=== PATIENT | female | born 1995 | race Caucasian/White ===

== ENCOUNTER 2020-07-07 11:41 | Emergency (ER) | payer BC, MEDICAID, SELFPAY ==
[2020-07-07 11:48] VITALS: BP 137/84; PULSE 64; RESP 14; TEMP 36.7; O2SAT 100; BMI 23.9
--- NOTE | 2020-07-07 12:00 | US_ITS ---
WS: [id number] Obstetrical ultrasound, less than 14 weeks. HISTORY: Vaginal bleeding. History of . Transvaginal imaging is submitted. Uterus is anteverted and normal size. Mild thickening of the endom etrium. There is increased vascularity within the endometrium but no gestational sac. Endometrium kate sures up to 8 mm. Cervix is closed. RIGHT ovary measures 3.6 x 1.0 x 2.8 cm. Normal size ovary. No increased vascularity. LEFT ovary nathalie ures 4.0 x 2.1 x 2.3 cm. Normal size ovary with several small follicles. No free fluid. US/US OB transvaginal [id number] IMPRESSION: 1. No intrauterine gestational sac is identified. Mild thickening of endometriu m may be from recently passed gestation or hormonal stimulation. Without an int rauterine gestation cannot exclude ectopic if there is a positive beta hCG. 2. No free fluid.
--- NOTE | 2020-07-07 12:02 | W.ED.PREGNAN ---
HPI - General: Chief complaint: Vaginal Bleeding Stated complaint: /bleeding Time Seen by Provider: 07/07/20 11:57 History of Present Illness: HPI Narrative: The patient is a 24-year-old G1 with last menstrual period April 16 who comes to the ER complaining of vaginal bleeding for the past 2 days. She says Tuesday she started having spotting and Tuesday she had gushing blood today it is less but she still bleeding. She was to set up care with OB this week but the bleeding started so she came to the ED. MD Complaint: vaginal bleeding Severity: mild Quality: Cramping Relieving factors: none Exacerbating factors: none Date of Last Menstrual Period: 04/16/20 Associated symptoms: Reports no associated symptoms; Deny abdominal pain or headache(s) Review of Systems General: Reports: 10 or more systems reviewed and unremarkable except in HPI and below Const: Denies: fatigue Eyes: Denies: change in vision, blurry vision or eye redness ENMT: Denies: throat pain, swelling of lips/tongue, ear or mastoid pain or nasal congestion Card: Denies: chest pain, palpitations, irregular heart rhythm, edema, dyspnea on exertion or orthopnea Resp: Denies: dyspnea, productive cough or non-productive cough GI: Denies: abdominal pain, diarrhea or GI cramping : Reports: vaginal bleeding; Denies: flank pain, difficulty voiding, urinary frequency or urinary urgency Musc: Denies: neck pain, back pain, extremity pain, joint pain, joint redness, limited range of motion or muscle weakness Skin/Breast: Denies: rash, pruritus, erythema, skin pain or skin tenderness Neuro: Denies: headache(s), numbness in extremities, weakness in extremities, sensory changes, difficulty walking, dizziness, confusion or Slurred speech present Psych: Denies: anxiety or depression Endo: Denies: polyuria All/Imm: Denies: urticaria, throat swelling or tongue swelling [facility] ED Female Reproductive History: Date of last menstrual period: 04/16/20 Physical Exam Const: COMMON NORMALS: no acute distress, average body habitus, patient oriented x3, no limitations, healthy appearing, alert and well nourished GENERAL APPEARANCE: cooperative, comfortable, well kempt and well developed ORIENTATION/CONSCIOUSNESS: Yes awake, Yes oriented to person, Yes oriented to place and Yes oriented to time HENMT: COMMON NORMALS: normocephalic, external ears normal and Normal external nose present HEAD & SCALP: normal to inspection and normocephalic NOSE: Normal external nose present EXTERNAL EAR: Yes external ears normal MOUTH: Normal oral and palatal mucosa present THROAT: posterior oropharynx normal Eye: COMMON NORMALS: Equal, round and reactive pupils present and EOMs intact bilaterally GENERAL EYE: appearance normal, both eyes and all related structures PUPIL: Yes Equal, round and reactive pupils present Neck/C-Spine: COMMON NORMALS: full ROM, no lymphadenopathy, no meningeal signs and no JVD GENERAL: Yes normal visual inspection Lymph: LYMPHATIC: no lymphadenopathy noted Chest: COMMONS NORMALS: normal inspection of the chest and normal palpation of entire chest wall Resp: COMMON NORMALS: normal respiratory effort, No retractions, No use of accessory muscles, clear to auscultation bilaterally and percussion normal EFFORT & INSPECTION: Yes able to speak in complete sentences AUSCULTATION: clear to auscultation bilaterally PERCUSSION: percussion normal Cardio: COMMON NORMALS: no JVD, regular rate, regular rhythm, S1 normal heart sound present, S2 normal heart sound present and Peripheral pulses 2+ throughout RATE: regular rate RHYTHM: regular rhythm HEART SOUNDS: S1 normal heart sound present and S2 normal heart sound present PERIPHERAL PULSES: Peripheral pulses 2+ throughout GI: COMMON NORMALS: Normal to inspection, nondistended, normoactive bowel sounds present, Soft to palpation, non-tender and no masses INSPECTION: Yes normal to inspection PALPATION: Yes Soft to palpation : COMMON NORMALS: Yes no CVA tenderness BLADDER/KIDNEY EXAM: Yes no CVA tenderness Back/Pelvis: COMMON NORMALS: no CVA tenderness, thoracic and lumbar spine normal to inspection, no thoracic nor lumbar tenderness and thoraco-lumbar ROM normal Extremity: COMMON NORMALS: normal to inspection, full ROM, capillary refill normal, no joint enlargement and no pedal edema GENERAL: Yes normal exam except as noted Neuro: COMMON NORMALS: patient oriented x3, CN's II-XII intact bilaterally, moves all extremities, no focal motor deficits, no sensory deficits noted and gait normal SENSORIUM/ORIENTATION: Yes alert, Yes oriented to person, Yes oriented to place and Yes oriented to time MENINGEAL SIGNS: Yes no meningeal signs Psych: COMMON NORMALS: mental status grossly normal, Normal thought process present, cooperative, normal affect and speech normal APPEARANCE: Yes well kempt ATTITUDE: Yes calm SPEECH: Yes normal speech THOUGHT PROCESS: Normal thought process present Skin: COMMON NORMALS: no rashes or lesions noted GENERAL SKIN EXAM: no rashes or lesions noted Course Vital Signs: Vital signs: Vital Signs Temperature 98.0 F 07/07/20 11:48 Pulse Rate 70 07/07/20 13:36 Respiratory Rate 14 07/07/20 13:36 Blood Pressure 112/78 07/07/20 13:36 Pulse Oximetry 97 07/07/20 13:36 MDM - OB/Uterine Contractions MDM Narrative: Medical decision making narrative: Patient came in with vaginal bleeding approximately 12 weeks gestation. Beta hCG is low and ultrasound shows no fetus in the uterine cavity. Recommended follow-up with OB as she already has planned. Return to the ER with worsening symptoms. Gave her symptoms for fallopian tube just in case and to return with those. Lab Data: Labs: Lab Results 07/07/20 07/07/20 07/07/20 Range/Units 12:20 12:20 12:20 WBC 6.5 (4.0-10.0) 10^3/ uL RBC 4.19 (4.1-5.3) 10^6/u L Hgb 12.7 (11.5-15.3) g/dL Hct 38.4 (37.0-47.0) % MCV 91.6 (81-99) fL MCH 30.3 (28.0-34.0) pg MCHC 33.1 (30.0-36.0) g/dL RDW 12.3 (12.1-15.1) % Plt Count 186 (130-400) 10^3/c mm MPV 9.8 (7.4-10.4) fL Neut % (Auto) 54.2 % Lymph % (Auto) 33.7 % [place] % (Auto) 8.3 % Eos % (Auto) 2.9 % Baso % (Auto) 0.6 % Neut # (Auto) 3.54 (1.8-7.7) 10^3/u L Lymph # (Auto) 2.2 (0.8-4.8) 10^3/u L [place] # (Auto) 0.5 (0.2-0.9) 10^3/u L Eos # (Auto) 0.2 (0.0-0.8) 10^3/u L Baso # (Auto) 0.0 (0.0-0.1) 10^3/u L Nucleated RBC % (a uto) 0 % Nucleated RBCs # 0.0 /100WBC Sodium 140 (136-145) mmol/L Potassium 3.7 (3.5-5.1) mmol/L Chloride 105 (98-107) mmol/L Carbon Dioxide 26 (22-29) mmol/L Anion Gap 12.7 (5-19) BUN 11 (6-20) mg/dL Creatinine 0.7 (0.5-0.9) mg/dL GFR Calculation 103.7 (90-130) mL/min Glucose 86 (65-115) mg/dL Calculated Osmolal ity 289 (285-295) mOsm/k g Calcium 8.9 (8.5-10.5) mg/dL Total Bilirubin 0.3 (0.15-1.2) mg/dL AST 17 (0-32) U/L ALT 10 (0-33) U/L Alkaline Phosphata se 48 (35-105) IU/L Total Protein 6.5 L (6.6-8.7) g/dL Albumin 4.4 (3.5-5.2) g/dL Globulin 2.1 (1.3-4.6) g/dL Ser , Rhoda i-Qnt 1292.00 mIU/mL Urine Color (Yellow) Urine Appearance (CLEAR) Urine pH (5-7) Ur Specific Gravit y (1.005-1.030) Urine Protein (Negative) Urine Glucose (UA) (Normal) Urine Ketones (Negative) Urine Blood (Negative) Urine Nitrate (Negative) Urine Bilirubin (Negative) Urine Urobilinogen (Negative) mg/dL Ur Leukocyte Janet ase (Negative) Urine RBC (0-2) /hpf Urine WBC (0-5) /hpf Ur Squamous Epith Cells (0-5) /hpf Amorphous Sediment Urine Bacteria (NONE) /hpf Urine Mucus /hpf Blood Type O Positive Rho(D) Type Positive 07/07/20 Range/Units 12:26 WBC (4.0-10.0) 10^3/ uL RBC (4.1-5.3) 10^6/u L Hgb (11.5-15.3) g/dL Hct (37.0-47.0) % MCV (81-99) fL MCH (28.0-34.0) pg MCHC (30.0-36.0) g/dL RDW (12.1-15.1) % Plt Count (130-400) 10^3/c mm MPV (7.4-10.4) fL Neut % (Auto) % Lymph % (Auto) % [place] % (Auto) % Eos % (Auto) % Baso % (Auto) % Neut # (Auto) (1.8-7.7) 10^3/u L Lymph # (Auto) (0.8-4.8) 10^3/u L [place] # (Auto) (0.2-0.9) 10^3/u L Eos # (Auto) (0.0-0.8) 10^3/u L Baso # (Auto) (0.0-0.1) 10^3/u L Nucleated RBC % (a uto) % Nucleated RBCs # /100WBC Sodium (136-145) mmol/L Potassium (3.5-5.1) mmol/L Chloride (98-107) mmol/L Carbon Dioxide (22-29) mmol/L Anion Gap (5-19) BUN (6-20) mg/dL Creatinine (0.5-0.9) mg/dL GFR Calculation (90-130) mL/min Glucose (65-115) mg/dL Calculated Osmolal ity (285-295) mOsm/k g Calcium (8.5-10.5) mg/dL Total Bilirubin (0.15-1.2) mg/dL AST (0-32) U/L ALT (0-33) U/L Alkaline Phosphata se (35-105) IU/L Total Protein (6.6-8.7) g/dL Albumin (3.5-5.2) g/dL Globulin (1.3-4.6) g/dL Ser , Rhoda i-Qnt mIU/mL Urine Color Straw (Yellow) Urine Appearance Clear (CLEAR) Urine pH 5 (5-7) Ur Specific Gravit y 1.005 (1.005-1.030) Urine Protein Neg (Negative) Urine Glucose (UA) Norm (Normal) Urine Ketones Negative (Negative) Urine Blood 2+ H (Negative) Urine Nitrate Negative (Negative) Urine Bilirubin Neg (Negative) Urine Urobilinogen Norm (Negative) mg/dL Ur Leukocyte Janet ase Negative (Negative) Urine RBC 0-4 H (0-2) /hpf Urine WBC 0-4 H (0-5) /hpf Ur Squamous Epith Cells 0-4 H (0-5) /hpf Amorphous Sediment Not Reportable Urine Bacteria Trace (NONE) /hpf Urine Mucus Trace /hpf Blood Type Rho(D) Type Discharge Plan Discharge Patient Disposition: Home Clinical Impression: Complete miscarriage Condition: Stable Prescriptions: No Action Multivitamins 28 mg iron- 800 mcg Tablet 1 tab PO DAILY RF: 0 Discharge Orders: Discharge ED (Routine); Ordered 07/07/20 Ordered By: Ghulam Jimenez Referrals: Johnny Farris FNP [Primary Care Provider] - Discharge Diet: Advance as tolerated Discharge Activity: Resume usual activity Patient Instructions: Spontaneous Miscarriage (ED), Opioid Safety Activity Restrictions/Additional Instructions: The ultrasound does not show a fetus in your uterus. You have likely had a miscarriage. Please follow-up with your OB doctor as you have scheduled and return to the ER with worsening symptoms. Watch out for abdominal pain as there could be a small chance of a fallopian tube requiring surgery. Return to the ER with worsening symptoms. Coding Level of Care Code ED Repairer Handtools for [facility] Exam Comprehensive
[2020-07-07 12:26] VITALS: BP 131/84; PULSE 70; RESP 16; O2SAT 100
[2020-07-07 12:30] LABS: Basophils % 0.6 %; Eosinophils # 0.2 10^3/uL (0.0-0.8); Eosinophils % 2.9 %; Hematocrit 38.4 % (37.0-47.0); Hemoglobin 12.7 g/dL (11.5-15.3); Lymphocytes # 2.2 10^3/uL (0.8-4.8); Lymphocytes % 33.7 %; Mean Corpuscular HGB Conc 33.1 g/dL (30.0-36.0); Mean Corpuscular Hemoglobin 30.3 pg (28.0-34.0); Mean Corpuscular Volume 91.6 fL (81-99); Mean Platelet Volume 9.8 fL (7.4-10.4); Monocytes # 0.5 10^3/uL (0.2-0.9); Monocytes % 8.3 %; Neutrophils # 3.54 10^3/uL (1.8-7.7); Neutrophils % 54.2 %; Nucleated Red Blood Cells % 0 %; Platelet Count 186 10^3/cmm (130-400); Red Blood Count 4.19 10^6/uL (4.1-5.3); Red Cell Distribution Width 12.3 % (12.1-15.1); White Blood Count 6.5 10^3/uL (4.0-10.0)
[2020-07-07 13:06] LABS: Alanine Aminotransferase 10 U/L (0-33); Albumin Level 4.4 g/dL (3.5-5.2); Alkaline Phosphatase 48 IU/L (35-105); Aspartate Amino Transferase 17 U/L (0-32); Blood Urea Nitrogen 11 mg/dL (6-20); Calcium 8.9 mg/dL (8.5-10.5); Carbon Dioxide 26 mmol/L (22-29); Chloride 105 mmol/L (98-107); Globulin 2.1 g/dL (1.3-4.6); Glomerular Filtration Rate 103.7 mL/min (90-130); Glucose 86 mg/dL (65-115); Osmolality Calculated 289 mOsm/kg (285-295); Sodium 140 mmol/L (136-145); Total Bilirubin 0.3 mg/dL (0.15-1.2); Total Protein 6.5 g/dL (6.6-8.7)
[2020-07-07 13:15] LABS: Anion Gap 12.7 (5-19); Potassium 3.7 mmol/L (3.5-5.1)
[2020-07-07 13:29] LABS: Add Urine Microscopic? YES; Bilirubin Urine Neg (Negative); Blood Urine 2+ (Negative); Glucose Urine UA Norm (Normal); Ketones Urine Negative (Negative); Leukocyte Esterase Urine Negative (Negative); Nitrate Urine Negative (Negative); Protein Urine Neg (Negative); Specific Gravity, Urine 1.005 (1.005-1.030); Urine Appearance Clear (CLEAR); Urine Color Straw (Yellow); Urobilinogen Urine Norm (Negative); pH Urine 5 (5-7)
[2020-07-07 13:30] LABS: Add Urine Culture? No; Bacteria Urine TRACE /hpf; Mucus Urine TRACE /hpf; RBC Urine 0-4 /hpf (0-2); Squamous Epithelial Cell Urine 0-4 /hpf (0-5); WBC Urine 0-4 /hpf (0-5)
[2020-07-07 13:36] VITALS: BP 112/78; PULSE 70; RESP 14; O2SAT 97
== END 2020-07-07 13:38 | disposition home or self-care (01) ==
PROVIDERS: Emergency Provider Family Medicine; PCP Nurse Practitioner Family
DX: O03.9 Complete or unspecified spontaneous abortion without complication (principal)
CPT/HCPCS: 76817; 80053; 81001; 84702; 85025; 86900; 99283

== ENCOUNTER → 2020-07-21 09:04 | Outpatient (BNVA) | payer BC, SELFPAY | PROVIDERS: PCP Family Medicine | DX: O03.4 Incomplete spontaneous abortion without complication (principal) | CPT/HCPCS: 84702 ==

== ENCOUNTER → 2021-11-27 00:01 | Outpatient (BNVA) | payer OTHER, SELFPAY | PROVIDERS: PCP Family Medicine; Visit Provider Obstetrics & Gynecology | DX: Z34.90 Encounter for supervision of normal pregnancy, unspecified, unspecified trimester (principal) | CPT/HCPCS: 81000 ==

== ENCOUNTER → 2021-12-04 13:18 | Outpatient (BNVA) | payer OTHER, SELFPAY | PROVIDERS: PCP Family Medicine; Visit Provider Obstetrics & Gynecology | DX: Z34.90 Encounter for supervision of normal pregnancy, unspecified, unspecified trimester (principal) | CPT/HCPCS: 80307; 84315; 84443; 85025; 86592; 86762; 86803; 86850; 86900; 87086; 87340; 87491; 87591; 87661; 88175 ==

== ENCOUNTER → 2022-02-24 14:25 | Outpatient (BNVA) | payer OTHER, SELFPAY | PROVIDERS: PCP Family Medicine; Visit Provider Obstetrics & Gynecology | DX: Z34.90 Encounter for supervision of normal pregnancy, unspecified, unspecified trimester (principal) | CPT/HCPCS: 81000 ==

== ENCOUNTER → 2022-03-17 13:40 | Outpatient (BNVA) | payer OTHER, SELFPAY | PROVIDERS: PCP Family Medicine; Visit Provider Obstetrics & Gynecology | DX: Z34.90 Encounter for supervision of normal pregnancy, unspecified, unspecified trimester (principal) | CPT/HCPCS: 80053; 80307; 82950; 84315; 85025; 86592; 86762; 86803; 86850; 86900; 87086; 87340; 87806 ==

== ENCOUNTER → 2022-04-16 13:40 | Outpatient (BNVA) | payer OTHER, SELFPAY | PROVIDERS: PCP Family Medicine; Visit Provider Obstetrics & Gynecology | DX: Z34.90 Encounter for supervision of normal pregnancy, unspecified, unspecified trimester (principal) | CPT/HCPCS: 81000 ==

== ENCOUNTER → 2022-04-28 13:30 | Outpatient (BNVA) | payer OTHER, SELFPAY | PROVIDERS: PCP Family Medicine; Visit Provider Obstetrics & Gynecology | DX: Z34.90 Encounter for supervision of normal pregnancy, unspecified, unspecified trimester (principal) | CPT/HCPCS: 81000; 85025 ==

== ENCOUNTER → 2022-05-12 15:25 | Outpatient (BNVA) | payer OTHER, SELFPAY | PROVIDERS: PCP Family Medicine; Visit Provider Obstetrics & Gynecology | DX: Z34.90 Encounter for supervision of normal pregnancy, unspecified, unspecified trimester (principal) | CPT/HCPCS: 81000; 87081 ==

== ENCOUNTER → 2022-05-17 15:00 | Outpatient (BNVA) | payer OTHER, SELFPAY | PROVIDERS: PCP Family Medicine; Visit Provider Obstetrics & Gynecology | DX: O99.891 Other specified diseases and conditions complicating pregnancy (principal); R82.90 Unspecified abnormal findings in urine; Z3A.00 Weeks of gestation of pregnancy not specified | CPT/HCPCS: 81000; 87077; 87086; 87184 ==

== ENCOUNTER → 2022-05-26 13:43 | Outpatient (BNVA) | payer OTHER, SELFPAY | PROVIDERS: PCP Family Medicine; Visit Provider Obstetrics & Gynecology | DX: Z34.90 Encounter for supervision of normal pregnancy, unspecified, unspecified trimester (principal) | CPT/HCPCS: 81000; 87086 ==

== ENCOUNTER → 2022-06-04 08:26 | Outpatient (BNVA) | payer OTHER, SELFPAY | PROVIDERS: PCP Family Medicine; Visit Provider Obstetrics & Gynecology | DX: Z34.90 Encounter for supervision of normal pregnancy, unspecified, unspecified trimester (principal) | CPT/HCPCS: 81000 ==

== ENCOUNTER 2022-06-07 14:42 | Outpatient (CLI) | payer OTHER, MEDICAID, SELFPAY ==
[2022-06-07 14:57] VITALS: BP 123/79; PULSE 69
[2022-06-07 14:59] VITALS: BMI 28.3
[2022-06-07 15:00] VITALS: RESP 16
--- NOTE | 2022-06-07 15:00 | US_ITS ---
WS: [id number] BIOPHYSICAL PROFILE AMNIOTIC FLUID HISTORY: Evaluate well-being. COMPARISON: None available. Cardiac activity: 144 bpm. Cervix: Obscured by head. position: Vertex. Placenta: Anterior, no previa. Small placental lakes. Placenta grade: 2 Parameters are as follows: Breathin Movement: 2 Tone: 2 Fluid volume: 2 Amniotic fluid index 14.3 cm; single deep vertical pocket 7.0 cm. US/US OB BPP wo NST [id number] IMPRESSION: 1. Biophysical profile score: 8/8. 2. Normal amniotic fluid.
[2022-06-07 15:11] VITALS: BP 115/72; PULSE 63
[2022-06-07 15:26] VITALS: BP 114/76; PULSE 69
[2022-06-07 15:41] VITALS: BP 117/77; PULSE 96
[2022-06-07 15:56] VITALS: BP 136/70; PULSE 59
== END 2022-06-07 16:07 | disposition home or self-care (01) ==
LOC: OPOB 14:48 → OBGYN 14:50
PROVIDERS: PCP Family Medicine; Visit Provider Obstetrics & Gynecology
DX: Z34.83 Encounter for supervision of other normal pregnancy, third trimester (principal)
CPT/HCPCS: 59025; 76819; 84315; 99211

== ENCOUNTER 2022-06-13 23:35 | Inpatient (IN) | payer OTHER, SELFPAY ==
[2022-06-14] VITALS (51 sets, daily range): BP systolic 104–152; BP diastolic 59–94; PULSE 51–82; RESP 17–18; TEMP 36.1–36.7; O2SAT 99; BMI 28.5
[2022-06-14 00:23] LABS: Actim Prom Positive
[2022-06-14 00:55] LABS: Basophils % 0.4 %; Eosinophils # 0.1 10^3/uL (0.0-0.8); Eosinophils % 0.8 %; Hematocrit 38.6 % (37.0-47.0); Hemoglobin 13.1 g/dL (11.5-15.3); Lymphocytes # 2.3 10^3/uL (0.8-4.8); Mean Corpuscular HGB Conc 33.9 g/dL (30.0-36.0); Mean Corpuscular Hemoglobin 30.8 pg (28.0-34.0); Mean Corpuscular Volume 90.8 fl (81-99); Mean Platelet Volume 11.1 fL (7.4-10.4); Monocytes % 9.5 %; Neutrophils # 6.95 10^3/uL (1.8-7.7); Neutrophils % 66.9 %; Nucleated Red Blood Cells % 0 %; Platelet Count 142 10^3/cmm (130-400); Red Blood Count 4.25 10^6/uL (4.1-5.3); Red Cell Distribution Width 13.1 % (12.1-15.1); White Blood Count 10.4 10^3/uL (4.0-10.0)
[2022-06-14] MEDS: ampicillin 2,000 MG in sodium chloride 0.9% (plus) 50 ML 100 MG IV (01:18)
[2022-06-14] MEDS: dextrose 5%-lactated ringers 1,000 ML 125 ML IV (01:19)
--- NOTE | 2022-06-14 02:52 | P.HP_ITS ---
Providers/Chief Complaint Admitting Physician: Chris Carias MD Primary QUALITY COMPLIANCE CONSULTANT: Mckenna Sandoval M.D. Primary Care Provider: Sharon Quiros, HPI QUALITY COMPLIANCE CONSULTANT History of Present Illness June 14, 2022, 0150 26 y.o. A1 EDC? June 12, 2022 At 40 w 2 d Presents c/o mild UCs and clear fluid leakage since 1999 on 06-13-22 No bleeding + active movements No complications Exam:?comfortable, awake, alert ?VS? normal ?Abd:? soft, nontender ? Cx:? (per RN)?? 1 cm External monitor: ? heart tracing good variability, + accelerations ACTIM? + GBS? + A/P: 40 w 2 d SROM, clear fluid Mild UCs GBS + fetus reassuring Plan admit plan start Abx for GBS + Expectant management Present Details : 2 Para: 0 Date of Last Menstrual Period: 04/16/20 Calculated Date of Delivery: 01/21/21 Gestational Age Based on Last Menstrual Period: 112 Labs Rubella: Immune RPR: Negative GBS: Positive Medications/Allergies Home Medications Medication Instructions Recorded Confirmed Last Taken Type vit no.95-ferrous 1 tab PO DAILY 06/07/22 06/14/22 06/13/22 History fumarate 28 mg-folic acid 800 mcg tablet () Allergies Allergy/AdvReac Type Severity Reaction Status Date / Time No Known Allergies Allergy Verified 06/04/22 08:44 PFSH QUALITY COMPLIANCE CONSULTANT PFSH: Medical History No pertinent past medical history neghx: htn,dm,thyroid,dvt/pe PCP: Sharon Quiros Surgical History No pertinent past surgical history Family History Grandmother Diabetes Maternal Hypercholesteremia Maternal Denies family history of Colon cancer Ovarian cancer Heart disease Breast cancer Hypertension Uterine cancer Thyroid disease Stroke Social History Smoking and tobacco status: never smoked History History History 2 Term 0 0 Miscarriages/Ectopic 1 Living Children 0 Care WILLIAM Calculator Estimated Delivery Date Method Current WG Current Estimate 06/09/22 LMP (Uncertain) 40w 5d Other Estimates 06/08/22 Ultrasound #1 40w 6d 06/12/22 Ultrasound #2 40w 2d Vitals/I&O/Wt Last Vital Signs Temp 97.2 F L 06/14/22 00:04 Pulse 63 06/14/22 02:42 Resp 17 06/14/22 01:35 BP 104/60 06/14/22 02:42 O2 Del Method 06/14/22 01:37 06/13/22 06/13/22 06/14/22 14:59 22:59 06:59 Intake Total 50 / 50 Balance 50 / 50 Weight last 48 hrs Weight 161 lb Data 06/14/22 00:40 A&P Assessment and plan (1) GBS (group B Streptococcus carrier), +RV culture, currently : (2) Supervision of normal : (3) Spontaneous rupture of membranes: Attestations Medical Necessity Statement*: patient at 40 w 2 d with spontaneous rupture of membranes Coding Level of Care Code Acute Code for Chg Fwd Diagnoses GBS (group B Streptococcus carrier), +RV culture, currently O99.820 Supervision of normal Z34.90 Spontaneous rupture of membranes
[2022-06-14] MEDS: ampicillin 1,000 MG in sodium chloride 0.9% (plus) 50 ML 100 MG IV ×4 (04:53→18:32)
[2022-06-14] MEDS: oxytocin 30 UNIT/500 ML BAG IV (09:57)
--- NOTE | 2022-06-14 12:12 | P.PN_ITS ---
SCHOOL BUS DRIVER/TEACHER ASSISTANT Subjective Subjective: Interval history: June 14, 2022, 0830 Fetus reassuring Not feeling UCs Discussed with patient plan for Pitocin Patient agrees with Pitocin A/P: 40 w 3 d SROM, clear fluid GBS? + Plan start Pitocin for labor induction / augmentation Labor: Station: -2 Monitor Mode: External Contraction Pattern: I rregular Status: Category I Vitals/I&O/Wt Last Vital Signs Temp 97.1 F L 06/14/22 10:02 Pulse 70 06/14/22 11:57 Resp 18 06/14/22 07:58 BP 139/89 06/14/22 11:57 O2 Del Method 06/14/22 01:37 06/13/22 06/14/22 06/14/22 22:59 06:59 14:59 Intake Total 100 / 100 11.299 / 11.299 Balance 100 / 100 11.299 / 11.299 Weight last 48 hrs Weight 161 lb Data 06/14/22 00:40 Attestations Medical Necessity Statement*: patient at 40 w 3 d, SROM, GBS + Coding Level of Care Code Acute Code for Chg Fwd
[2022-06-14] MEDS: miSOPROStol 100 mcg tablet 25 MCG VAGINAL ×2 (16:14→20:48)
--- NOTE | 2022-06-14 16:46 | PM.OBGYPN ---
PROFESSOR OF RADIOLOGY Subjective Subjective: Interval history: June 14, 2022, 1535 Fetus reassuring Having mild regular UCs on Pitocin Pitocin at 20 mU Cx? (per RN):?? long / closed Plan hold Pitocin for now and give cytotec 25 ug intravaginal Labor: Station: -4 Monitor Mode: External Contraction Pattern: Regular Status: Category I Vitals/I&O/Wt Last Vital Signs Temp 98.0 F 06/14/22 15:33 Pulse 64 06/14/22 16:25 Resp 18 06/14/22 07:58 BP 124/85 06/14/22 16:25 Pulse Ox 99 06/14/22 15:46 O2 Del Method 06/14/22 01:37 06/14/22 06/14/22 06/14/22 06:59 14:59 22:59 Intake Total 100 / 100 1154.466 / 1154.466 9.333 / 1163.799 Balance 100 / 100 1154.466 / 1154.466 9.333 / 1163.799 Weight last 48 hrs Weight 161 lb Data 06/14/22 00:40 Attestations Medical Necessity Statement*: patient at 40 w 3 d with SROM, undergoing labor induction Coding Level of Care Code Acute Code for Chg Fwd
[2022-06-14] MEDS: ampicillin 1,000 MG in sodium chloride 0.9% (plus) 50 ML 50 MG IV (22:44)
[2022-06-15] VITALS (68 sets, daily range): BP systolic 87–196; BP diastolic 43–91; PULSE 59–193; RESP 17–19; TEMP 36.4–36.9; O2SAT 98–100
[2022-06-15] MEDS: miSOPROStol 100 mcg tablet 25 MCG VAGINAL (00:45)
[2022-06-15] MEDS: ampicillin 1,000 MG in sodium chloride 0.9% (plus) 50 ML 100 MG IV ×4 (02:48→15:46)
[2022-06-15] MEDS: fentaNYL 50 mcg/mL INJ 2mL IVP ×6 (05:23→17:09)
[2022-06-15] MEDS: oxytocin 30 UNIT/500 ML BAG IV (14:08)
[2022-06-15] MEDS: lactated ringers 1,000 ML 999 ML IV ×2 (17:12→18:24)
--- NOTE | 2022-06-15 18:17 | P.PN_ITS ---
Subjective Subjective: Ms. Bautista is a 26 year old established patient with an LMP of 09/02/21, an WILLIAM of 06/12/22 based off her 20 week sonogram placing her a 41+0 weeks gestation today. Vitals/I&O/Wt Last Vital Signs Temp 98.2 F 06/15/22 05:45 Pulse 71 06/15/22 18:10 Resp 17 06/15/22 17:09 BP 132/83 06/15/22 18:10 Pulse Ox 99 06/14/22 15:46 O2 Del Method 06/15/22 07:48 06/15/22 06/15/22 06/15/22 06:59 14:59 22:59 Intake Total 100 / 1313.799 100.617 / 100.617 56.983 / 157.600 Balance 100 / 1313.799 100.617 / 100.617 56.983 / 157.600 Weight last 48 hrs Weight 73.028 kg Physical Exam Narrative: GA: Alert and oriented ?3. Lungs: Clear to auscultation bilaterally. Heart: Regular rhythm and rate. Abdomen: Gravid, full the height equals dates, nontender. BOILER PLANT OPERATOR: SVE; dilation: 4-5 cm, effacement: 50%, station: -4, presentation: vx, membranes: PROM clear. Extremities: no edema, no cyanosis, no calves pain. heart tracing: Basal rate: 140's bpm, Variability: moderate, Accelerations: present, Decelerations: absent, Contraction: q3min. Data 06/14/22 00:40 A&P Assessment and plan (1) Premature rupture of membranes: Mrs. Christianson 26-year-old female with an intrauterine 40 weeks +5 days on admission with a complaint of rupture of membrane. She was diagnosed with premature rupture of membranes. Had a slow progression of labor. Augmented with misoprostol, patient refused analgesics. Now she wants the epidural. Rupture Trinh bag with clear fluid. Good scalp stimulation. heart tracing reassuring category 1. Anticipate vaginal delivery. Attestations Medical Necessity Statement*: In my professional opinion per admitting diagnosis Coding Level of Care Code Acute Code for g Fwd Diagnoses Premature rupture of membranes O42.90
--- NOTE | 2022-06-15 19:24 | ANES.PREANE2 ---
Pre-Anesthetic Assessment Height/Weight: Height 1.6 m Weight 73.028 kg Temp Pulse Resp BP Pulse Ox O2 Del Method 98.2 F 71 17 123/68 99 06/15/22 05:45 06/15/22 19:20 06/15/22 17:09 06/15/22 19:20 06/14/22 15:46 06/15/22 16:18 Epidural Familial anesthetic complications: none Was Beta Wally taken within 24 hours: N/A Was Clonidine taken within 24 hours: N/A Social No alcohol and No tobacco Exam alert, oriented x 3, clear to auscultation bilaterally and regular rate & rhythm Airway Mallampati: Class III Dentition: full Anesthetic Plan ASA status: 2 Anesthesia: Regional (specify below) Risk of > 500 ml blood loss (7ml/kg in children): Yes, adequate IV access and fluids planned Medications/Allergies Home Medications Medication Instructions Recorded Confirmed Last Taken Type vit no.95-ferrous 1 tab PO DAILY 06/07/22 06/14/22 06/13/22 History fumarate 28 mg-folic acid 800 mcg tablet () Allergies Allergy/AdvReac Type Severity Reaction Status Date / Time No Known Allergies Allergy Verified 06/04/22 08:44 Current Medications Generic Name Dose Route Start Last Admin Trade Name Freq PRN Reason Stop Dose Admin Fentanyl 25 - 100 mcg 06/14/22 00:43 06/15/22 17:09 Fentanyl 50 Mcg/Ml Inj 2ml IVP 50 mcg Q1H PRN Administration SEVERE PAIN Dextrose/Lactated Ringer's 1,000 mls @ 125 mls/hr 06/14/22 00:45 06/15/22 05:14 Dextrose 5%-Lactated Ringers IV Not Given .Q8H CARLOS Ampicillin Sodium 1,000 mg/ 50 mls @ 100 mls/hr 06/14/22 04:45 06/15/22 18:40 Sodium Chloride IV Not Given Q4H CARLOS Protocol Oxytocin 30 unit in 500 mls @ 1 mls/hr 06/14/22 09:00 06/14/22 15:25 Pitocin IV 0 milliunit/min .Q24H CARLOS 0 mls/hr Titration Protocol 1 MILLIUNIT/MIN Oxytocin 30 unit in 500 mls @ 1 mls/hr 06/15/22 13:30 06/15/22 18:30 Pitocin IV 7 milliunit/min .Q24H CARLOS 7 mls/hr Titration Protocol 1 MILLIUNIT/MIN Ropivacaine 200 mg in 100 mls @ 13 mls/hr 06/15/22 17:00 06/15/22 18:24 Naropin Premix EPIDURAL 13 mls/hr .Q7H42M CARLOS Administration Lactated Ringer's 1,000 mls @ 999 mls/hr 06/15/22 16:54 06/15/22 18:24 Lactated Ringers IV 999 mls/hr .Q1H1M PRN Administration See label comments Misoprostol 25 mcg 06/14/22 15:15 06/14/22 16:14 Misoprostol 100 Mcg Tablet VAGINAL 25 mcg Q4H PRN Administration cervical ripening PFSH Anesthesia Medical History No pertinent past medical history neghx: htn,dm,thyroid,dvt/pe PCP: Sharon Quiros Surgical History No pertinent past surgical history Family History Grandmother Diabetes Maternal Hypercholesteremia Maternal Denies family history of Colon cancer Ovarian cancer Heart disease Breast cancer Hypertension Uterine cancer Thyroid disease Stroke Social History Smoking and tobacco status: never smoked Female Reproductive History Date of last menstrual period: 04/16/20 : 2 Data Anesthesia 06/14/22 00:40 Short CBC 06/14/22 Range/Units 00:40 WBC 10.4 H (4.0-10.0) 10^3/uL Hgb 13.1 (11.5-15.3) g/dL Hct 38.6 (37.0-47.0) % MCV 90.8 (81-99) fl Plt Count 142 (130-400) 10^3/cmm Neut % (Auto) 66.9 % Neut # (Auto) 6.95 (1.8-7.7) 10^3/uL Cardiac Studies: No Data to Display Anesthesia Procedures Epidural Time Out Performed: Yes Consents Signed: Procedure Consent Consent: requested by attending/covering physician, from patient, risks and benefits reviewed and patient agrees to proceed Lumbar Level: L3-L4 Epidural position: sitting Epidural procedure: sterile prep of area, 1% lidocaine to numb the area, 18 g needle, negative for paresthesia passed, neg for paresthesia, test dose given, 1.5% xylocaine 1:200k epi (5 cc), 0.2% Ropivacaine bolus ml (5 cc), placed PCEA, no systemic response, sterile dressing applied, L.U.D. no apparent complications and 0.2% Ropiavacaine @ mls/hr
--- NOTE | 2022-06-15 19:30 | ANES.PROC ---
Anesthesia Procedures Procedure/Date: 06/18/22 Epidural: Time Out Performed: Yes Consents Signed: Procedure Consent Consent: requested by attending/covering physician Lumbar Level: L3-L4 Epidural position: sitting Epidural procedure: sterile prep of area, 1% lidocaine to numb the area, 18 g needle, negative for paresthesia passed, neg for paresthesia, test dose given, 1.5% xylocaine 1:200k epi (5), 0.2% Ropivacaine bolus ml (5), placed PCEA, no systemic response, sterile dressing applied, L.U.D. no apparent complications and 0.2% Ropiavacaine @ mls/hr (13)
[2022-06-15] MEDS: terbutaline 1 mg/mL INJ 0.25 MG SUBCUT (20:38)
--- NOTE | 2022-06-15 21:21 | P.PN_ITS ---
EMERGENCY MANAGEMENT CONSULTANT Subjective Subjective: Interval history: Called to evaluate patient due to heart rate deceleration Labor: Station: -1 Amniotic Membrane Status: Ruptured Monitor Mode: None Contraction Pattern: Occasional Status: Category II Vitals/I&O/Wt Last Vital Signs Temp 97.6 F 06/17/22 05:25 Pulse 61 06/17/22 05:25 Resp 18 06/17/22 05:25 BP 128/82 06/17/22 05:25 Pulse Ox 97 06/17/22 05:25 O2 Del Method 06/17/22 05:25 O2 Flow Rate 10 06/15/22 20:34 Physical Exam Narrative: The patient looks well. She is comfortable with an epidural Const: COMMON NORMALS: no acute distress, average body habitus, patient oriented x3, no limitations, healthy appearing, alert and well nourished GENERAL APPEARANCE: cooperative, comfortable, well kempt and well developed ORIENTATION/CONSCIOUSNESS: Yes awake, Yes oriented to person, Yes oriented to place and Yes oriented to time Resp: COMMON NORMALS: normal respiratory effort EFFORT & INSPECTION: Yes able to speak in complete sentences GI: COMMON NORMALS: Soft to palpation and non-tender PALPATION: Yes Soft to palpation : MANUAL OB EXAM: dilated 6 cm, effaced fully and station -1 Extremity: COMMON NORMALS: no calf tenderness Neuro: COMMON NORMALS: patient oriented x3 SENSORIUM/ORIENTATION: Yes alert, Yes oriented to person, Yes oriented to place and Yes oriented to time Psych: APPEARANCE: Yes well kempt Urinary Catheter Management: Trinh: Cath Placed During This Visit: yes, but has since been removed by the nurse Reason for Continuing Indwelling Catheter: Decision to DC Catheter Urinary Catheter Date of Insertion: 06/15/22 Urinary Catheter Time of Insertion: 19:25 Date Urinary Catheter Removed: 06/16/22 Time Urinary Catheter Discontinued: 08:45 Data 06/16/22 14:50 A&P Assessment and plan (1) intolerance to labor, delivered, current hospitalization: The baby had a 10 minutes decelerations. Now, she is having subtle late decelerations with every contraction. I have discussed proceeding with . The patient agrees. will proceed with urgent Attestations Medical Necessity Statement*: The patient has already been her for over 2 midnights. Coding Level of Care Code Acute Code for Chg Fwd Diagnoses intolerance to labor, delivered, current hospitalization O77.9
[2022-06-15] MEDS: metoclopramide 5 mg/mL SDV 2 mL 10 MG IV (21:48)
[2022-06-15] MEDS: famotidine 20 mg/2 mL INJ IVP (21:48)
[2022-06-15] MEDS: citric acid-sodium citrate 30 mL UDC PO (21:49)
[2022-06-15] MEDS: ceFAZolin 2,000 MG in sodium chloride 0.9% (plus) 50 ML 100 MG IV (21:49)
--- NOTE | 2022-06-15 23:07 | PM.OP ---
Operative Report Date of procedure: June 15, 2022 Pre-op diagnosis: intolerance to labor. persistent late decelerations. Post-op diagnosis: same Post-op findings: term male with the ROP presentation with meconium stained fluid. Normal appearing uterus, tubes and ovaries Procedure done: primary Specimens removed/disposition: placenta-discarded Surgeon: Jennifer Sandoval Anesthesia: Epidural Estimated blood loss (mL): 400 IV fluids (mL): 500 Urine output (mL): 100 Complications: none Condition: stable Disposition: PACU Procedure: The patient was taken to the operating room where spinal anesthesia was administered and found to be adequate. She was prepped and draped in the normal sterile fashion in the dorsal supine position with a leftward tilt. A Pfannenstiel skin incision was made and carried down to the underlying layer of fascia. The fascia was nicked in the midline and extended laterally with the Rogers scissors. The fascia was then tented up and the rectus muscles dissected off sharply. The rectus muscles were and the peritoneum entered bluntly with the digit. The peritoneal incision was extended superiorly and inferiorly with good visualization of the bladder. The Vince O retractor was placed. It was clear of any bowel or omentum. The bladder flap was created sharply with the Metzenbaum scissors. A low transverse uterine incision was made and carried down to the bag of water. The bag of water was ruptured and the uterine incision extended cephalocaudad. The scalp was grasped and brought through the incision. The nose and mouth were bulb suctioned. The shoulders and body delivered atraumatically. The baby was allowed to rest, while being dried, for 1 minute and then the cord was clamped and cut. The baby was handed to the waiting telephone interceptor operator. The placenta was delivered by expression. The uterus was exteriorized and cleared of all clots and debris. The uterine incision was closed with 0 Vicryl in a running fashion. A second imbricating layer of 3-0 Monocryl was used to close the uterus. The bladder flap was closed with 3-0 Monocryl. There was excellent hemostasis. The Vince O retractor was removed. The uterus was returned to the abdomen. The peritoneum was closed with 3-0 Monocryl, incorporating the rectus muscle. The fascia was closed with 0 Vicryl in 2 separate sutures overlapping in the midline. The skin was closed with absorbable melina. Apgars on baby 7 at 1 minute and 8 at 5 minutes. weight 6 pounds 4 ounces. Mother and baby were stable post delivery.
--- NOTE | 2022-06-15 23:12 | ANE.PACU2 ---
Inpatient post-anesthesia follow up: Airway intact: Yes Vital signs: Temperature 97.5 F Pulse Rate 82 Respiratory Rate 18 Blood Pressure 125/71 Pulse Oximetry 99 Oxygen Delivery Me thod Room Air Oxygen Flow Rate Fraction of Inspir ed Oxygen Hydration adequate: Yes Nausea and vomiting: No Pain level: 1 Mental status: Baseline
[2022-06-16] VITALS (12 sets, daily range): BP systolic 117–144; BP diastolic 62–84; PULSE 57–80; RESP 14–18; TEMP 36.6–37.3; O2SAT 94–100
[2022-06-16] MEDS: ketorolac 30 mg/mL INJ IVP ×2 (01:15→07:20)
--- NOTE | 2022-06-16 01:31 | PC.NURSE ---
2129: Megan Rubio CRNA contacted for C/S and notified it to be urgent not stat. 2130: Dr. Armas contacted for C/S and notified Dr. Sandoval wants her here for delivery.
--- NOTE | 2022-06-16 08:35 | PC.NURSE ---
Pt ambulated in hallway around nurses stations x2 laps. Pt tolerated well. Denies any lightheadedness or dizziness. Encouraged pt to ambulate in hallways a few times a day.
[2022-06-16] MEDS: docusate sodium 100 mg Capsule PO ×2 (09:16→21:05)
[2022-06-16] MEDS: prenatal vitamin Capsule 1 CAP PO (09:16)
[2022-06-16] MEDS: ferrous sulfate EC 325 mg Tablet PO ×2 (09:16→21:05)
--- NOTE | 2022-06-16 11:06 | PM.PN ---
Subjective Subjective: The patient is doing well. Her pain is well controlled and she is ambulating around the room. Vitals/I&O/Wt Last Vital Signs Temp 97.6 F 06/17/22 05:25 Pulse 61 06/17/22 05:25 Resp 18 06/17/22 05:25 BP 128/82 06/17/22 05:25 Pulse Ox 97 06/17/22 05:25 O2 Del Method 06/17/22 05:25 O2 Flow Rate 10 06/15/22 20:34 Physical Exam Narrative: The patient has no concerns today Const: COMMON NORMALS: no acute distress, average body habitus, patient oriented x3, no limitations, healthy appearing, alert and well nourished Resp: COMMON NORMALS: normal respiratory effort EFFORT & INSPECTION: Yes able to speak in complete sentences GI: COMMON NORMALS: Soft to palpation and non-tender PALPATION: Yes Soft to palpation Extremity: COMMON NORMALS: no calf tenderness Neuro: COMMON NORMALS: patient oriented x3 SENSORIUM/ORIENTATION: Yes alert Urinary Catheter Management: Trinh: Cath Placed During This Visit: yes, but has since been removed by the nurse Reason for Continuing Indwelling Catheter: Decision to DC Catheter Urinary Catheter Date of Insertion: 06/15/22 Urinary Catheter Time of Insertion: 19:25 Date Urinary Catheter Removed: 06/16/22 Time Urinary Catheter Discontinued: 08:45 Data 06/16/22 14:50 Attestations Medical Necessity Statement*: The patient will be here two midnights due to delivery Coding Level of Care Code Acute Code for Chg Fwd
[2022-06-16 15:21] LABS: Hematocrit 32.8 % (37.0-47.0); Hemoglobin 10.8 g/dL (11.5-15.3); Mean Corpuscular HGB Conc 32.9 g/dL (30.0-36.0); Mean Corpuscular Hemoglobin 30.5 pg (28.0-34.0); Mean Corpuscular Volume 92.7 fl (81-99); Mean Platelet Volume 11.9 fL (7.4-10.4); Platelet Count 119 10^3/cmm (130-400); Red Blood Count 3.54 10^6/uL (4.1-5.3); Red Cell Distribution Width 13.2 % (12.1-15.1); White Blood Count 10.7 10^3/uL (4.0-10.0)
[2022-06-16] MEDS: ibuprofen 800 mg tablet PO ×2 (15:28→21:06)
[2022-06-16] MEDS: HYDROcodone-acetaminophen 5-325 mg Tablet PO (15:28)
[2022-06-17 05:25] VITALS: BP 128/82; PULSE 61; RESP 18; TEMP 36.4; O2SAT 97
[2022-06-17] MEDS: ferrous sulfate EC 325 mg Tablet PO (08:15)
[2022-06-17] MEDS: docusate sodium 100 mg Capsule PO (08:15)
[2022-06-17] MEDS: ibuprofen 800 mg tablet PO ×2 (08:15→14:32)
[2022-06-17] MEDS: prenatal vitamin Capsule 1 CAP PO (08:15)
--- NOTE | 2022-06-17 11:14 | PM.DCS ---
Discharge Providers Date of Admission: 06/14/22 00:46 Date of Discharge: June 17, 2022 Attending Provider at Admission: Chris Carias MD Attending Provider at Discharge: Jennifer Sandoval MD Primary Care Provider: Sharon Quiros DO Diagnoses at Discharge Discharge Diagnosis (1) Premature rupture of membranes: Status: Acute Hospital Course Hospital Course The patient was admitted at 40 weeks gestation for PROM. She received several doses of cytotec and then pitocin. Eventually, the patient achieved a cervical dilation of 6 cm, when the baby began to have recurrent late decelerations with every contraction. Resuscitative measures didn't improve the heart rate tracing. I discussed with the patient that I would recommend a . She agreed. A was performed. She did well postoperatively and was ready for discharg on day #2. Physical Exam Narrative: The patient is doing well today Const: COMMON NORMALS: no acute distress, average body habitus, patient oriented x3, no limitations, healthy appearing, alert and well nourished GENERAL APPEARANCE: cooperative, comfortable, well kempt and well developed ORIENTATION/CONSCIOUSNESS: Yes awake, Yes oriented to person, Yes oriented to place and Yes oriented to time Resp: COMMON NORMALS: normal respiratory effort EFFORT & INSPECTION: Yes able to speak in complete sentences GI: COMMON NORMALS: Soft to palpation and non-tender PALPATION: Yes Soft to palpation Extremity: COMMON NORMALS: no calf tenderness Neuro: COMMON NORMALS: patient oriented x3 SENSORIUM/ORIENTATION: Yes alert, Yes oriented to person, Yes oriented to place and Yes oriented to time Psych: COMMON NORMALS: mental status grossly normal, Normal thought process present, cooperative, normal affect and speech normal APPEARANCE: Yes well kempt SPEECH: Yes normal speech THOUGHT PROCESS: Normal thought process present Skin: WOUNDS: Yes surgical site (dry/intact. A small amount of dried blood is present. suprapubic bruising) Urinary Catheter Management: Trinh: Cath Placed During This Visit: yes, but has since been removed by the nurse Reason for Continuing Indwelling Catheter: Decision to DC Catheter Urinary Catheter Date of Insertion: 06/15/22 Urinary Catheter Time of Insertion: 19:25 Date Urinary Catheter Removed: 06/16/22 Time Urinary Catheter Discontinued: 08:45 Discharge Data Studies Completed and Pending Laboratory Results WBC 10.7 10^3/uL (4.0-10.0) H 06/16/22 14:50 RBC 3.54 10^6/uL (4.1-5.3) L 06/16/22 14:50 Hgb 10.8 g/dL (11.5-15.3) L 06/16/22 14:50 Hct 32.8 % (37.0-47.0) L 06/16/22 14:50 MCV 92.7 fl (81-99) 06/16/22 14:50 MCH 30.5 pg (28.0-34.0) 06/16/22 14:50 MCHC 32.9 g/dL (30.0-36.0) 06/16/22 14:50 RDW 13.2 % (12.1-15.1) 06/16/22 14:50 Plt Count 119 10^3/cmm (130-400) L 06/16/22 14:50 MPV 11.9 fL (7.4-10.4) H 06/16/22 14:50 Neut % (Auto) 66.9 % 06/14/22 00:40 Lymph % (Auto) 22.0 % 06/14/22 00:40 [place] % (Auto) 9.5 % 06/14/22 00:40 Eos % (Auto) 0.8 % 06/14/22 00:40 Baso % (Auto) 0.4 % 06/14/22 00:40 Neut # (Auto) 6.95 10^3/uL (1.8-7.7) 06/14/22 00:40 Lymph # (Auto) 2.3 10^3/uL (0.8-4.8) 06/14/22 00:40 [place] # (Auto) 1.0 10^3/uL (0.2-0.9) H 06/14/22 00:40 Eos # (Auto) 0.1 10^3/uL (0.0-0.8) 06/14/22 00:40 Baso # (Auto) 0.0 10^3/uL (0.0-0.1) 06/14/22 00:40 Nucleated RBC % (auto) 0 % 06/14/22 00:40 Nucleated RBCs # 0.0 /100WBC 06/14/22 00:40 Insulin-like GF I Positive 06/14/22 00:00 Vitals Last Vital Signs Temp 97.6 F 06/17/22 05:25 Pulse 61 06/17/22 05:25 Resp 18 06/17/22 05:25 BP 128/82 06/17/22 05:25 Pulse Ox 97 06/17/22 05:25 O2 Del Method 06/17/22 05:25 O2 Flow Rate 10 06/15/22 20:34 Discharge Plan Discharge Patient Disposition: Home Condition: Stable Prescriptions: New ibuprofen 800 mg Tablet 800 mg PO TID Qty: 30 0RF hydrocodone-acetaminophen 5-325 mg Tablet 1 tab PO Q4H PRN (Reason: Moderate To Severe Pain) Qty: 15 0RF docusate sodium 100 mg Capsule 100 mg PO BID Qty: 60 0RF Continued PNV [id number] fumarate-FA [] 28 mg iron- 800 mcg Tablet 1 tab PO DAILY Discharge Orders: Discharge Order (Routine); Ordered 06/17/22 Ordered By: Jennifer Sandoval Patient Instructions: Hydrocodone/Acetaminophen (By mouth) (Vicodin, [place], Lortab), Ibuprofen (By mouth), Coronary Artery Disease (DC), Depression (GEN), Bleeding (GEN), Breast Care for the Mother (GEN), OB WHC, OB Discharge Report, OB Food/Drug Interaction Guide, OB Home Care Instructions, OB Care at Home, Opioid Safety, OB Home Care, OB Proud Parent Packet, Abnormal Bleeding Discharge Attestations Time Spent in Discharge Care*: less than 30 min Quality Metrics Clinical Quality Measures [ No reported AMI, CVA or VTE this stay] Coding Level of Care Code Acute Code for Chg Fwd Diagnoses Premature rupture of membranes O42.90
[2022-06-17 14:44] VITALS: BP 125/81; PULSE 74; RESP 16; TEMP 36.8
== END 2022-06-17 14:45 | disposition home or self-care (01) | DRG 788 ==
PROVIDERS: Obstetrics & Gynecology; Admitting Provider Obstetrics & Gynecology; PCP Family Medicine; Visit Provider Obstetrics & Gynecology
PROC: 10D00Z1 Extraction of Products of Conception, Low, Open Approach (ICD-10-PCS; CPT 59514; principal; 2022-06-15 22:05)
DX: O76 Abnormality in fetal heart rate and rhythm complicating labor and delivery (principal); O99.824 Streptococcus B carrier state complicating childbirth; O48.0 Post-term pregnancy; Z3A.40 40 weeks gestation of pregnancy; O77.0 Labor and delivery complicated by meconium in amniotic fluid; Z37.0 Single live birth
CPT/HCPCS: 12345; 36415; 51702; 59025; 59409; 84112; 85025; 85027; 96372; 96374; 96376; 98960; 99211; G0378; G0379; J0290; J0690; J1885; J2370; J2405; J2590; J2765; J2795; J3010; J3105; J3490; J7030; J7120; J7121

== ENCOUNTER → 2025-03-26 07:56 | Outpatient (BNVA) | payer OTHER, SELFPAY | PROVIDERS: PCP Family Medicine; Visit Provider Nurse Practitioner Women's Health | DX: Z34.82 Encounter for supervision of other normal pregnancy, second trimester (principal); Z34.90 Encounter for supervision of normal pregnancy, unspecified, unspecified trimester; N91.2 Amenorrhea, unspecified | CPT/HCPCS: 80307; 81025; 84443; 85025; 86592; 86762; 86803; 86850; 86900; 87086; 87340; 87491; 87591; 87624; 87661; 87806 ==

== ENCOUNTER → 2025-04-02 08:40 | Outpatient (BNVA) | payer OTHER, SELFPAY | PROVIDERS: PCP Family Medicine; Visit Provider Obstetrics & Gynecology | DX: O09.32 Supervision of pregnancy with insufficient antenatal care, second trimester (principal) | CPT/HCPCS: 84315; 85025 ==

== ENCOUNTER → 2025-04-16 08:50 | Outpatient (BNVA) | payer OTHER, SELFPAY | PROVIDERS: PCP Family Medicine; Visit Provider Obstetrics & Gynecology | DX: O09.30 Supervision of pregnancy with insufficient antenatal care, unspecified trimester (principal); Z3A.24 24 weeks gestation of pregnancy | CPT/HCPCS: 82950; 84315 ==